=== PATIENT | female | born 1995 | race African-American/Black ===

== ENCOUNTER 2017-02-24 21:23 | Emergency (ER) | payer OTHER ==
[~2017-02-24] VITALS: Ht 167.6 cm; Wt 114.8 kg
[~2017-02-24 21:23] MED LIST: DOCU-109 PO; FURO-69 PO; HYDR-2758 PO; IBUP-1060 PO; IBUP200T43 PO; LEVO50TA PO; OXYC-323 PO; PREN1COM3 PO; SERT50TA PO; inhaler
[2017-02-24 21:44] VITALS: BP 94/57
[2017-02-24 22:28] LABS: BASO # 0.1 x10^3/uL (0.0-0.2); BASO % 0 % (0-3); EOS % 2 % (0-3); HEMATOCRIT 34.2 % (36.0-47.0); HEMOGLOBIN 11.7 g/dL (12.0-15.5); LYMPH # 2.7 x10^3/uL (1.0-4.8); LYMPH % 19 % (24-48); MEAN CORPUSCULAR HEMOGLOBIN 29 pg (25-35); MEAN CORPUSCULAR HGB CONC 34 g/dL (31-37); MEAN CORPUSCULAR VOLUME 86 fL (79-100); MONO % 6 % (0-9); NEUT % 72 % (31-73); PLATELET COUNT 263 x10^3/uL (140-400); RED BLOOD COUNT 3.97 x10^6/uL (3.50-5.40); RED CELL DISTRIBUTION WIDTH 14.2 % (11.5-14.5); WHITE BLOOD COUNT 14.2 x10^3/uL (4.0-11.0)
[2017-02-24 22:29] LABS: BILIRUBIN,URINE NEGATIVE (NEG); GLUCOSE,URINE NEGATIVE (NEG); NITRITE,URINE NEGATIVE (NEG); PROTEIN,URINE NEGATIVE (NEG-TRACE); UROBILINOGEN,URINE 0.2 mg/dL (0.2 mg/dL)
[2017-02-24 22:34] LABS: CALCIUM 8.9 mg/dL (8.5-10.1); CREATININE 0.5 mg/dL (0.6-1.0); GFR 188.5; POTASSIUM 3.5 mmol/L (3.5-5.1)
[2017-02-24 22:45] LABS: BACTERIA,URINE FEW /HPF (0-FEW); RBC,URINE 0 /HPF (0-2); SQUAMOUS EPITHELIAL CELL,UR MOD /LPF
[2017-02-24] MEDS ORDERED: IV NORMAL SALINE 1000ML BAG 1,000 ML IV SCH (23:00)
[2017-02-24] MEDS ORDERED: ONDANSETRON PF 4 MG/2 ML VIAL. IV ONE (23:00)
--- NOTE | 2017-02-24 23:22 | PHYS DOC ---
Past Medical History Past Medical History: Other Additional Past Medical Histor: endometriosis Past Surgical History: Other Additional Past Surgical Histo: right broken arm, cyst Alcohol Use: None Drug Use: None Adult General Chief Complaint Chief Complaint: ABDOMINAL PAIN IN HPI HPI Patient is a 21 year old female who presents with complaint of lower abdominal pain and cramping. Patient has been having intermittent symptoms over the past 2 weeks. The patient is approximately 13 weeks estimated gestational age. Patient follows with Dr. Cornejo for care. Patient was seen in the emergency department on February 09 and was treated for possible cervicitis at that time with azithromycin and Rocephin. The patient's gonorrhea and chlamydia swab resulted as negative from that visit. The patient followed up with Dr. Cornejo approximately 5 days after her visit and reports no significant findings from her visit. The patient states that she continues to have lower abdominal and pelvic cramping that radiates towards her back. Patient also notes that she has continued thick yellow vaginal discharge with her symptoms. Patient denies any fevers or vomiting at this time. Patient denies any vaginal bleeding. Patient rates her pain as 8 out of 10. Review of Systems Review of Systems Constitutional: Denies fever or chills [] Eyes: Denies change in visual acuity, redness, or eye pain [] HENT: Denies nasal congestion or sore throat [] Respiratory: Denies cough or shortness of breath [] Cardiovascular: Denies chest pain or edema[] GI: Denies abdominal pain, nausea, vomiting, bloody stools or diarrhea [] : Pelvic pain, vaginal discharge[] Musculoskeletal: Denies back pain or joint pain [] Integument: Denies rash or skin lesions [] Neurologic: Denies headache, focal weakness or sensory changes [] Current Medications Current Medications Current Medications Medications (Trade) Dose Ordered Sig/Lea Start Time Stop Time Status Last Admin Dose Admin Ondansetron HCl (Zofran) 4 mg 1X ONCE 02/24/17 23:00 02/24/17 23:01 Sodium Chloride 1,000 ml @ 1,000 mls/hr Q1H 02/24/17 23:00 02/24/17 23:59 Allergies Allergies Allergies Coded Allergies Type Severity Reaction Last Updated Verified amoxicillin Allergy Intermediate Swelling 04/15/14 Yes terbutaline Allergy Mild Itching 05/22/15 Yes Physical Exam Physical Exam Constitutional: Alert, afebrile, appears in mild discomfort. [] HENT: Normocephalic, atraumatic, bilateral external ears normal, oropharynx moist, no oral exudates, nose normal. [] Eyes: PERRLA, EOMI, conjunctiva normal, no discharge. [] Neck: Normal range of motion, no tenderness, supple, no stridor. [] Cardiovascular:Heart rate regular rhythm, no murmur [] Lungs & Thorax: Bilateral breath sounds clear to auscultation [] Abdomen: Bowel sounds normal, soft, no tenderness, no masses, no pulsatile masses. . Pelvic: Normal external exam, cervix with mild inflammatory changes, mild cervical motion tenderness, midline tenderness to palpation on bimanual exam, no adnexal tenderness[] Skin: Warm, dry, no erythema, no rash. [] Back: No tenderness, no CVA tenderness. [] Extremities: No tenderness, no cyanosis, no clubbing, ROM intact, no edema. [] Neurologic: Alert and oriented X 3, normal motor function, normal sensory function, no focal deficits noted. [] Current Patient Data Vital Signs Vital Signs Date Time Temp Pulse Resp B/P (MAP) Pulse Ox O2 Delivery O2 Flow Rate FiO2 02/24/17 21:44 98.2 89 13 94/57 (69) 99 Room Air 98.2 Lab Values Laboratory Tests Test 02/24/17 21:39 02/24/17 22:00 02/24/17 22:03 Urine Collection Type Unknown Urine Color Yellow Urine Clarity Clear Urine pH 7.0 Urine Specific [place] 1.020 Urine Protein Negative mg/dL (NEG-TRACE) Urine Glucose (UA) Negative mg/dL (NEG) Urine Ketones (Stick) Negative mg/dL (NEG) Urine Blood Negative (NEG) Urine Nitrite Negative (NEG) Urine Bilirubin Negative (NEG) Urine Urobilinogen Dipstick 0.2 mg/dL (0.2 mg/dL) Urine Leukocyte Esterase Small (NEG) Urine RBC 0 /HPF (0-2) Urine WBC 1-4 /HPF (0-4) Urine Squamous Epithelial Cells Mod /LPF Urine Bacteria Few /HPF (0-FEW) Urine Mucus Marked /LPF White Blood Count 14.2 x10^3/uL (4.0-11.0) H Red Blood Count 3.97 x10^6/uL (3.50-5.40) Hemoglobin 11.7 g/dL (12.0-15.5) L Hematocrit 34.2 % (36.0-47.0) L Mean Corpuscular Volume 86 fL (79-100) Mean Corpuscular Hemoglobin 29 pg (25-35) Mean Corpuscular Hemoglobin Concent 34 g/dL (31-37) Red Cell Distribution Width 14.2 % (11.5-14.5) Platelet Count 263 x10^3/uL (140-400) Neutrophils (%) (Auto) 72 % (31-73) Lymphocytes (%) (Auto) 19 % (24-48) L Monocytes (%) (Auto) 6 % (0-9) Eosinophils (%) (Auto) 2 % (0-3) Basophils (%) (Auto) 0 % (0-3) Neutrophils # (Auto) 10.2 x10^3uL (1.8-7.7) H Lymphocytes # (Auto) 2.7 x10^3/uL (1.0-4.8) Monocytes # (Auto) 0.9 x10^3/uL (0.0-1.1) Eosinophils # (Auto) 0.3 x10^3/uL (0.0-0.7) Basophils # (Auto) 0.1 x10^3/uL (0.0-0.2) Sodium Level 137 mmol/L (136-145) Potassium Level 3.5 mmol/L (3.5-5.1) Chloride Level 103 mmol/L (98-107) Carbon Dioxide Level 26 mmol/L (21-32) Anion Gap 8 (6-14) Blood Urea Nitrogen 5 mg/dL (7-20) L Creatinine 0.5 mg/dL (0.6-1.0) L Estimated GFR (Cockcroft-Gault) 188.5 Glucose Level 84 mg/dL (70-99) Calcium Level 8.9 mg/dL (8.5-10.1) Magnesium Level 2.0 mg/dL (1.8-2.4) POC Urine HCG, Qualitative Hcg positive (Negative) Laboratory Tests 02/24/17 22:00 Laboratory Tests 02/24/17 22:00 EKG EKG Not performed[] Radiology/Procedures Radiology/Procedures Limited bedside transabdominal ultrasound performed and interpreted by myself: heart rate 140 bpm, frequent movements, trace pelvic free fluid, no adnexal masses[] Course & Med Decision Making Course & Med Decision Making Pertinent Labs and Imaging studies reviewed. (See chart for details) Patient given IV fluids in the emergency department. The patient's lab work appears unremarkable and patient's bedside ultrasound shows a normal viable intrauterine . I spoke with patient's CHIEF COMPLIANCE OFFICER, Dr. Cornejo, who agreed that antibiotic should be withheld at today's visit. The etiology of the patient 's symptoms remains unclear however low suspicion exists for serious bacterial infection. He agreed to follow-up with patient in the next 3 days in his office for reevaluation. Advised return emergency department for any worsening symptoms. Patient voiced understanding and in agreement with treatment plan. Dragon Disclaimer Dragon Disclaimer This electronic medical record was generated, in whole or in part, using a voice recognition dictation system. Departure Departure Impression: Primary Impression: Pelvic pain affecting Disposition: 01 HOME, SELF-CARE Condition: STABLE Referrals: RAMIN CORNEJO Jr, MD (PCP) Patient Instructions: Pelvic Pain, Female Additional Instructions: Follow-up in 3-[address] Cornejo for reevaluation. Return to emergency department for any worsening symptoms. Problem Qualifiers Primary Impression: Pelvic pain affecting Trimester: first trimester Qualified Codes: O26.891 - Other specified related conditions, first trimester; R10.2 - Pelvic and perineal pain TREY LAURENT MD Feb 24, 2017 23:22
== END 2017-02-25 00:27 | disposition home or self-care (01) ==
LOC: ER 21:23
DX: O26.891 Other specified pregnancy related conditions, first trimester (principal); R10.2 Pelvic and perineal pain; N89.8 Other specified noninflammatory disorders of vagina; Z3A.13 13 weeks gestation of pregnancy; Z88.1 Allergy status to other antibiotic agents; Z88.8 Allergy status to other drugs, medicaments and biological substances
CPT/HCPCS: 36415; 80048; 81001; 81025; 83735; 85025; 87086; 96361; 96374; 99285; J2405; J7030; Q0111

== ENCOUNTER → 2017-03-23 | Outpatient (CLI) | payer OTHER ==
[2017-02-24 21:44] VITALS: BP 94/57
[~2017-03-23] MED LIST changes: -IBUP200T43 PO; +IBUP200T44 PO
--- NOTE | 2017-03-23 10:37 | RAD ---
Obstetrical ultrasound, 03/23/2017: History: size and date discrepancy There is a single intrauterine fetus in a cephalic orientation. The biparietal diameter measures 4.0 cm compatible with a gestational age of 18 weeks. This corresponds well with the other measurements yielding an average gestational age of 18 weeks and 1 day and a sonographic EDC of 08/23/2017. Normal activity and heart motion were seen. The heart rate was 132 bpm. No specific abnormality is detected. The amniotic fluid volume appears to be within normal limits. The placenta is centered posteriorly extending into the fundal region. There is no evidence of a placenta previa. The cervical length is 5.2 cm. There is a 5.8 x 3.3 x 2.4 cm simple appearing fluid collection present along the right side of the lower uterine segment. The ovaries are not specifically visualized. IMPRESSION: 1. Single viable intrauterine fetus of 18 weeks gestational age. 2. Moderate-sized right adnexal fluid collection or cyst as described above. This is likely an ovarian or paraovarian cyst.
== END | disposition home or self-care (01) ==
LOC: US 07:54
PROVIDERS: ATTEND Obstetrics & Gynecology
DX: O09.92 Supervision of high risk pregnancy, unspecified, second trimester (principal); O26.842 Uterine size-date discrepancy, second trimester; Z3A.18 18 weeks gestation of pregnancy
CPT/HCPCS: 76805

== ENCOUNTER 2017-06-28 19:02 | Observation (INO) | payer OTHER ==
[2017-06-28] MEDS ORDERED: IV RINGERS,LACTATED 1000ML 1,000 ML IV (19:15)
[2017-06-28] MEDS ORDERED: ACETAMINOPHEN 325 MG TABLET. PO (19:15)
[2017-06-28 19:54] LABS: BILIRUBIN,URINE NEGATIVE (NEG); CLARITY,URINE CLEAR; COLOR,URINE YELLOW; GLUCOSE,URINE NEGATIVE (NEG); NITRITE,URINE NEGATIVE (NEG); PH,URINE 6.5; PROTEIN,URINE NEGATIVE (NEG-TRACE); UROBILINOGEN,URINE 0.2 mg/dL (0.2 mg/dL)
[2017-06-28 20:05] LABS: BARBITURATES NEG (NEG); BENZODIAZEPINES NEG (NEG); CANNABINOIDS NEG (NEG); COCAINE NEG (NEG); METHADONE NEG (NEG); OPIATES NEG (NEG); PHENCYCLIDINE NEG (NEG)
[2017-06-28 20:06] LABS: AMPHETAMINE/METHAMPHETAMINE NEG (NEG); ETHANOL, URINE NEG (NEG)
[2017-06-28 20:11] LABS: INFLUENZA A PATIENT NEGATIVE (NEGATIVE); INFLUENZA B PATIENT NEGATIVE (NEGATIVE); OBC FLU VALID
[2017-06-28 20:12] LABS: BACTERIA,URINE 0 /HPF (0-FEW); RBC,URINE 0 /HPF (0-2); SQUAMOUS EPITHELIAL CELL,UR OCC /LPF; WBC,URINE 0 /HPF (0-4)
== END 2017-06-28 21:03 | disposition home or self-care (01) ==
LOC: 3 SO LND 19:02
DX: O26.893 Other specified pregnancy related conditions, third trimester (principal); R10.10 Upper abdominal pain, unspecified; Z3A.31 31 weeks gestation of pregnancy
CPT/HCPCS: 80307; 81001; 87804; 87804-59; G0378; G0379